=== PATIENT | male | born 1940 | race Caucasian/White ===

== ENCOUNTER 2018-09-08 18:54 | Observation (INO) ==
[2018-09-08 19:09] VITALS: BMI 32.3
--- NOTE | 2018-09-08 20:19 | DR.SEIZA ---
HPI Time Seen Time Seen by Provider: 09/08/18 19:54 Primary Care Physician Primary Care Physician: DR. CORONADO Complaints Chief Complaint Doctors Comments: Hx. was obtained from pt. and his spouse. He had what was described as a seizure at the dinner table after 1900 hrs. hrs tonight. She states he was unresponsive briefly and his extremities started shaking all over as he fell from the siting position. He did not bite himself and did not loose control of urine or feces. He states that this has been going on for several months and he has been and is still undergoing tests. He has had a holter, CT Scan of the head and been to a sod cutter lately. Chief Complaint:: STATES THAT PATIENT IS HAVING BLACK OUTS. STATES PATIENT IS FALLING ALL OVER THE PLACE. STATES PATIENT JUST HAD A SEIZURE AT HOME, STATES IT JUST LAST A FEW MINUTES. ALSO STATES PATIENT HAD A CT SCAN AND SHOWS HE HAS METAL IN HIS HEAD, SO HE CAN'T HAVE A MRI. IS REQUESTING FOR PATIENT TO BE ADMITTIED FOR FURTHER EVALUATION BECAUSE SHE IS HAVING A HARD TIME TAKING CARE OF HIM AT HOME WITH THE SEIZURES AND BLACK OUTS. PATIENT STATES IT STARTS IN HIS HEAD AND THAT HE JUST GETS SO DIZZY THAT HE CAN'T STAND UP. Reviewed Nurses Notes Reviewed: Yes Source History Provided: Patient, Friend and Significant Other Mode of Arrival Mode of Arrival: Ambulatory Timing Onset of Chief Complaint: 06/25/18 PMH PMH Past Medical History: Yes Past Medical History: Arthritis, Dyslipidemia, GERD, Hypertension, Kidney Stones and Seizures Past Surgical History: Yes Past Surgical History Comment: HERNIA REPAIR PROSTATE SURGERY KNEE SURGERY Family History History of Family Medical Conditions: Yes Family Medical History: Diabetes Mellitus, CA and Hypertension Social History Does patient currently use any type of tobacco product: No Have you used tobacco products in the last 12 months: No Type of Tobacco Use: None Does any household member use tobacco: No Alcohol Use: Occasionally Do you use any recreational Drugs:: No Lives With: Spouse Lives Where: Home infectious screening In the last 2 months have you had wt loss of >10#?: NO Have you had fever, night sweats or hemotysis?: No Have you traveled outside the country in the last 6 months?: No Isolation: Standard ROS Review of Systems Constitutional: No Symptoms Reported Eyes: No Symptoms Reported ENTM: No Symptoms Reported Respiratoy: No Symptoms Reported Cardiovascular: No Symptoms Reported Gastrointestinal/Abdominal: No Symptoms Reported Genitourinary: No Symptoms Reported Neurological: Seizure (?? syncope) Musculoskeletal: No Symptoms Reported Integumentary: No Symptoms Reported Hematologic/Lymphatic: No Symptoms Reported Endocrine: No Symptoms Reported Psychiatric: No Symptoms Reported All Other Systems: Reviewed and Negative PE Vital Signs Vitals: Temperature 99.3 F Pulse Rate 70 Respiratory Rate 20 Blood Pressure 170/79 O2 Sat by Pulse Oximetry 92 General Limitations: No Limitations General Appearance: Alert and In No Apparent Distress Head Head Exam: Normal Inspection, Atraumatic and Normocephalic Eyes Eye exam: Normal Appearance, PERRL and EOMI ENT ENT Exam: Normal Exam, Normal Oropharynx and Mucous Membranes Moist Neck Neck Exam: Normal Inspection, Full ROM and Trachea Midline Chest Chest Inspection: Normal Inspection and Symmetric Chest Wall Rise Respiratory Respiratory Exam: Normal Lung Sounds Bilat Cardiovascular Cardiovascular Exam: Regular Rate, Normal Rhythm, Normal Heart Sounds, +S1 and +S2 Abdominal Exam Abdominal Exam: Normal Inspection, Normal Bowel Sounds and Soft Extremities Extremities Exam: Normal Inspection and Full ROM Back Back Exam: Normal Inspection Neurologic Neurological Exam: Alert, Oriented X3 and Normal Gait Speech: Fluid Speech Psychiatric Psychiatric Exam: Normal Affect and Normal Mood Skin Skin Exam: Warm and Normal Color MDM Additional Information Obtained Additional Information Obtained From: Family COURSE Reevaluation 1st: Unchanged Consultation Consultation Comments: Presentation and findings were discussed with his PCP (Dr. Coronado), with recommendation for Observation admission. Dr. Coronado agrees with this. Education/Counseling Education/Counseling: Patient, Family, Education and Counseling Educated On: Treatment, Diagnosis, Prognosis and Needs for Follow Up ROR Labs Reviewed Result Diagrams: 09/08/18 20:07 09/08/18 20:07 Laboratory: WBC 8.0 X10^3/uL (3.6-10.0) 09/08/18 20:07 RBC 4.84 X10^6/uL (4.7-6.0) 09/08/18 20:07 Hgb 15.6 g/dL (13.5-18.0) 09/08/18 20:07 Hct 43.6 % (42.0-54.0) 09/08/18 20:07 MCV 90.1 fL (80.0-100.0) 09/08/18 20:07 MCH 32.2 pg (27.0-34.0) 09/08/18 20:07 MCHC 35.7 g/dL (33.0-35.0) H 09/08/18 20:07 RDW 12.9 % (11.6-16.5) 09/08/18 20:07 Plt Count 140 X10^3/uL (150.0-450.0) L 09/08/18 20:07 MPV 9.2 fL (7.4-11.0) 09/08/18 20:07 Neut % (Auto) 74.3 % (42.0-75.0) 09/08/18 20:07 Lymph % (Auto) 14.2 % (21.0-51.0) L 09/08/18 20:07 [place] % (Auto) 7.6 % (0.0-13.0) 09/08/18 20:07 Eos % (Auto) 2.9 % (0.9-2.9) 09/08/18 20:07 Baso % (Auto) 1.0 % (0.2-1.0) 09/08/18 20:07 Neut # (Auto) 6.0 x10^3/uL (2.2-4.8) H 09/08/18 20:07 Lymph # (Auto) 1.1 X10^3/uL (1.3-2.9) L 09/08/18 20:07 [place] # (Auto) 0.6 x10^3/uL (0.3-0.8) 09/08/18 20:07 Eos # (Auto) 0.2 x10^3/uL (0.0-0.2) 09/08/18 20:07 Baso # (Auto) 0.1 X10^3/uL (0.0-0.1) 09/08/18 20:07 Absolute Nucleated RBC 0.1 /100WBC 09/08/18 20:07 Sodium 137 mmol/L (136-145) 09/08/18 20:07 Corrected Sodium TNP 09/08/18 20:07 Potassium 3.7 mmol/L (3.5-5.1) 09/08/18 20:07 Chloride 103 mmol/L (98-107) 09/08/18 20:07 Carbon Dioxide 26.9 mmol/L (21-32) 09/08/18 20:07 BUN 22 mg/dL (7-18) H 09/08/18 20:07 Creatinine 0.98 mg/dL (0.70-1.30) 09/08/18 20:07 Est GFR (MDRD) Af Amer > 60 (>60) 09/08/18 20:07 Est GFR (MDRD) Non-Af > 60 (>60) 09/08/18 20:07 Glucose 106 mg/dL (65-99) H 09/08/18 20:07 Calcium 9.1 mg/dL (8.5-10.1) 09/08/18 20:07 Corrected Calcium TNP 09/08/18 20:07 Total Bilirubin 0.80 mg/dL (0.2-1.0) 09/08/18 20:07 AST 18 Units/L (15-37) 09/08/18 20:07 ALT 33 Units/L (12-78) 09/08/18 20:07 Alkaline Phosphatase 95 Units/L (46-116) 09/08/18 20:07 Total Protein 7.4 g/dL (6.4-8.2) 09/08/18 20:07 Albumin 3.9 g/dL (3.4-5.0) 09/08/18 20:07 Globulin 3.5 g/dL (2.5-4.5) 09/08/18 20:07 Albumin/Globulin Ratio 1.1 Ratio (1.1-2.1) 09/08/18 20:07 XRAY XRAY Interpreted by: Self XRAY Findings: cardiomegaly. Diagnosis Discharge Problem: Seizure, Benign essential HTN Hyperlipidemia Qualifiers: Hyperlipidemia type: mixed hyperlipidemia Qualified Code(s): E78.2 - Mixed hyperlipidemia Osteoarthritis Qualifiers: Osteoarthritis location: multiple joints Osteoarthritis type: primary Qualified Code(s): M15.0 - Primary generalized (osteo)arthritis
[2018-09-08 20:27] LABS: BASOPHILS # (AUTO) 0.1 X10^3/uL (0.0-0.1); EOSINOPHILS # (AUTO) 0.2 x10^3/uL (0.0-0.2); EOSINOPHILS % (AUTO) 2.9 % (0.9-2.9); HEMATOCRIT 43.6 % (42.0-54.0); HEMOGLOBIN 15.6 g/dL (13.5-18.0); LYMPHOCYTES # (AUTO) 1.1 X10^3/uL (1.3-2.9); LYMPHOCYTES % (AUTO) 14.2 % (21.0-51.0); MEAN CORPUSCULAR HEMOGLOBIN 32.2 pg (27.0-34.0); MEAN CORPUSCULAR HGB CONC 35.7 g/dL (33.0-35.0); MEAN CORPUSCULAR VOLUME 90.1 fL (80.0-100.0); MEAN PLATELET VOLUME 9.2 fL (7.4-11.0); MONOCYTES # (AUTO) 0.6 x10^3/uL (0.3-0.8); MONOCYTES % (AUTO) 7.6 % (0.0-13.0); NEUTROPHILS % (AUTO) 74.3 % (42.0-75.0); PLATELET COUNT 140 X10^3/uL (150.0-450.0); RED BLOOD COUNT 4.84 X10^6/uL (4.7-6.0); RED CELL DISTRIBUTION WIDTH 12.9 % (11.6-16.5)
[2018-09-08 20:31] LABS: ALANINE AMINOTRANSFERASE 33 Units/L (12-78); ALBUMIN 3.9 g/dL (3.4-5.0); ALKALINE PHOSPHATASE 95 Units/L (46-116); ASPARTATE AMINO TRANSFERASE 18 Units/L (15-37); BLOOD UREA NITROGEN 22 mg/dL (7-18); CALCIUM 9.1 mg/dL (8.5-10.1); CARBON DIOXIDE 26.9 mmol/L (21-32); CHLORIDE 103 mmol/L (98-107); CREATININE 0.98 mg/dL (0.70-1.30); SODIUM 137 mmol/L (136-145); TOTAL PROTEIN 7.4 g/dL (6.4-8.2); eGFR NON BLACK RACES > 60 (>60)
--- NOTE | 2018-09-08 20:43 | RAD ---
Chest AP portable Indication: Seizure and fall. Findings: There is no pneumothorax or effusion. Heart size is prominent. No dense consolidation or overt edema seen. Impression: Prominent heart size without other acute chest process. Reported By:
[2018-09-08] MEDS ORDERED: NORVASC TAB 5 MG PO ONE (22:04)
[2018-09-08] MEDS ORDERED: NORVASC TAB 5 MG ONE (22:07)
[2018-09-09 05:15] LABS: BASOPHILS # (AUTO) 0.1 X10^3/uL (0.0-0.1); BASOPHILS % (AUTO) 1.1 % (0.2-1.0); EOSINOPHILS # (AUTO) 0.2 x10^3/uL (0.0-0.2); HEMATOCRIT 41.8 % (42.0-54.0); HEMOGLOBIN 14.9 g/dL (13.5-18.0); LYMPHOCYTES # (AUTO) 1.2 X10^3/uL (1.3-2.9); LYMPHOCYTES % (AUTO) 20.6 % (21.0-51.0); MEAN CORPUSCULAR HGB CONC 35.7 g/dL (33.0-35.0); MEAN CORPUSCULAR VOLUME 89.8 fL (80.0-100.0); MEAN PLATELET VOLUME 9.1 fL (7.4-11.0); MONOCYTES # (AUTO) 0.5 x10^3/uL (0.3-0.8); MONOCYTES % (AUTO) 8.5 % (0.0-13.0); NEUTROPHILS # (AUTO) 3.8 x10^3/uL (2.2-4.8); NEUTROPHILS % (AUTO) 65.8 % (42.0-75.0); PLATELET COUNT 128 X10^3/uL (150.0-450.0); RED BLOOD COUNT 4.66 X10^6/uL (4.7-6.0); RED CELL DISTRIBUTION WIDTH 13.2 % (11.6-16.5); WHITE BLOOD COUNT 5.8 X10^3/uL (3.6-10.0)
[2018-09-09 05:30] LABS: ALANINE AMINOTRANSFERASE 29 Units/L (12-78); ALBUMIN 3.6 g/dL (3.4-5.0); ALKALINE PHOSPHATASE 88 Units/L (46-116); ASPARTATE AMINO TRANSFERASE 17 Units/L (15-37); BLOOD UREA NITROGEN 18 mg/dL (7-18); CALCIUM 8.6 mg/dL (8.5-10.1); CARBON DIOXIDE 28.9 mmol/L (21-32); CHLORIDE 104 mmol/L (98-107); CREATININE 0.83 mg/dL (0.70-1.30); SODIUM 140 mmol/L (136-145); TOTAL PROTEIN 6.9 g/dL (6.4-8.2); eGFR NON BLACK RACES > 60 (>60)
[2018-09-09] MEDS ORDERED: COREG TAB 6.25 MG PO SCH (09:00)
[2018-09-09 10:08] VITALS: BP 139/65
--- NOTE | 2018-09-26 10:09 | DR.CARTERS ---
Short Stay Summary - Admission Date Date of Admission: 09/08/18 - Discharge Date Discharge Date: 09/09/18 - Admission Diagnoses (1) Seizure Status: Acute (2) Benign essential HTN Status: Acute - Hospital Course Hospital Course: IS A 78 YEAR OLD PATIENT OF OURS WHO PRESENTED TO THE ER WITH COMPLAINTS OF SYNCOPAL EPISODES. FAMILY REPORTS THAT PATIENT HAD A SEIZURE AT HOME. SEIZURE REPORTEDLY ONLY LASTED A FEW MINUTES. PATIENT REPORTED DIZZINESS AND WEAKNESS AT HOME. SYMPTOMS HAVE APPARENTLY BEEN ONGOIN SINCE . PAST MEDICAL HISTORY INCLUDES ARTHRITIS, DYSLIPIDEMIA, GERD, HTN, KIDNEY STONES, SEIZURES, HERNIA REPAIR, KNEE SURGERY, AND PROSTATE SURGERY. ON ARRIVAL, VITALS WERE 99.3-70-20-92%RA-170/79. LABS WERE OBTAINED. ABNORMAL LAB VALUES INCLUDE THE FOLLOWING: BUN 22, GLUCOSE 106. CHEST XRAY REVEALED: PROMINENT HEART SIZE WITHOUT OTHER ACUTE CHEST PROCESS. EKG REVEALED: SINUS RHYTHM WITH HR 66. HE WAS ADMITTED FOR FURTHER EVALUATION AND TREATMENT. HE WAS STARTED ON COREG 6.25MG PO BID AND HIS REGULAR HOME MEDICATIONS WERE RESUMED. WE PLANNED TO FOLLOW UP WITH AM LABS AND CONTINUE TO MONITOR. ON THE MORNING FOLLOWING ADMISSION, PATIENT IS ALERT AND ORIENTED, SITTING IN CHAIR ON MORNING ROUNDS. HE DENIES SEIZURE ACTIVITY SINCE ADMISSION. HE CONTINUES WITH WEAKNESS AND DIZZINESS AT TIMES. ON EXAMINATION, HEART IS REGULAR IN RATE AND RHYTHM. BILATERAL LUNGS ARE NOTED WITH DIMINISHED LUNG SOUNDS THROUGHOUT. ABDOMEN IS ROUND, SOFT, AND NON-TENDER WITH NORMAL BOWEL SOUNDS NOTED IN ALL QUADRANTS. HIS VITALS THIS MORNING ARE 97.8-71-20-93%-139/65. LABS WERE OBTAINED. ABNORMAL LAB VALUES INCLUDE THE FOLLOWING: RBC 4.66, HCT 41.8. HIS BLOOD PRESSURE HAS REMAINED STABLE SINCE ADMISSION. WE PLANNED FOR DISCHARGE. INSTRUCTIONS FOR MEDICATIONS AND FOLLOW UP WERE DISCUSSED WITH PATIENT AND SPOUSE. THEY BOTH VERBALIZED UNDERSTANDING. HE WAS GIVEN A NEW PRESCRIPTION FOR DEPAKOTE 250MG PO DAILY AND REFERRED TO [facility] NEUROLOGIST. WE WILL ALSO HAVE PATIENT SET UP FOR TILT TABLE TESTING. HE IS INSTRUCTED TO FOLLOW UP IN OUR OFFICE ON 09/12/18 @ 09:20. PATIENT DISCHARGED HOME IN IMPROVED, STABLE CONDITION WITH SPOUSE. - Discharge Medications Discharge Medications: Home Medication List Unobtainable 09/08/18 [History] divalproex [Depakote ER] 250 mg PO QDAY #1 tab 09/09/18 [Rx] Prescriptions: divalproex [Depakote ER] Kevin Watson - Discharge Plan Disposition: 01 HOME, SELF-CARE Condition: Stable Prescriptions: divalproex [Depakote ER] 250 mg PO QDAY #1 tab - Follow up/Referrals Follow up/Referrals: Kevin Watson [Primary Care Provider] - 09/12/18 9:20 am Mikey Jalloh [STAFF PHYSICIAN] - 09/28/18 11:30 am (Tilt Table Test [facility]) MYLES OJEDA [REFERRING] - 10/05/18 3:00 pm (referal sent [phone] Dr. Ojeda. Referal [facility]) - Instructions Instructions: Seizure, Adult, [id number] Additional Instructions: DIET TOLERATED. ACTIVITY TOLERATED. SET UP FOR OUTPATIENT TILT TABLE TESTING. FOLLOW UP WITH [facility]. Forms: Patient Portal
== END 2018-09-09 10:45 | disposition home or self-care (01) ==
LOC: ICU 18:54 → ER 18:54 → ICU 22:39
PROVIDERS: ADMIT Internal Medicine; ATTEND Internal Medicine
DX: G40.89 Other seizures; M15.0 Primary generalized (osteo)arthritis; R94.31 Abnormal electrocardiogram [ECG] [EKG]; Z91.81 History of falling; R55 Syncope and collapse; I10 Essential (primary) hypertension; K21.9 Gastro-esophageal reflux disease without esophagitis; E78.2 Mixed hyperlipidemia
CPT/HCPCS: 36415; 71010; 71045; 80053; 85025; 93005; 99284; A4222; G0378